=== PATIENT | male | born 1970 | race African-American/Black ===

== ENCOUNTER 2018-08-11 18:02 | Emergency (ER) | payer MEDICARE ==
[~2018-08-11] VITALS: Ht 193 cm; Wt 72.7 kg
[2018-08-11] MEDS ORDERED: FLUP2.5 PO (18:10)
[2018-08-11] MEDS ORDERED: TRIH2TAB3 PO (18:10)
[2018-08-11 19:12] LABS: BASOPHILS % (AUTO) 0.9 % (0.0-2.0); EOSINOPHILS % (AUTO) 3.8 % (1.0-6.0); HEMATOCRIT 41.3 % (41-53); HEMOGLOBIN 13.8 g/dL (13.5-17.5); LYMPHOCYTES # (AUTO) 1.1 K/uL (1.0-4.8); LYMPHOCYTES % (AUTO) 13.6 % (22.0-44.0); MEAN CORPUSCULAR HGB CONC 33.5 G/dL (31.0-37.0); MEAN CORPUSCULAR VOLUME 87 fL (80-100); MONOCYTES # (AUTO) 0.6 K/uL (0.1-1.0); MONOCYTES % (AUTO) 7.8 % (2.0-9.0); NEUTROPHILS # (AUTO) 5.8 K/uL (1.8-7.7); NEUTROPHILS % (AUTO) 73.9 % (40.0-70.0); PLATELET COUNT (AUTO) 368 K/uL (150-450); RED BLOOD CELL COUNT(AUTO) 4.78 MIL/uL (4.50-5.90); RED CELL DISTRIBUTION WIDTH 14.3 % (11.5-14.5)
[2018-08-11 19:29] LABS: ANION GAP 6 mmol/L (8-16); CARBON DIOXIDE 28 mmol/L (22-29); CHLORIDE 101 mmol/L (98-107); POTASSIUM 3.9 mmol/L (3.5-5.1); SODIUM SERUM 135 mmol/L (136-145)
[2018-08-11 19:30] LABS: ALKALINE PHOSPHATASE 75 U/L (46-116); ASPARTATE AMINOTRANSFERASE 26 U/L (15-37); BILIRUBIN,TOTAL 0.5 mg/dL (0.1-1.0); CALCIUM, TOTAL 9.2 mg/dL (8.8-10.5); CREATININE 1.19 mg/dL (0.60-1.30); GLOMERULAR FILTR. RATE CALC > 60 mL/min (>60); GLUCOSE,RANDOM 117 mg/dL (70-110); UREA NITROGEN, BLOOD 20 mg/dL (7-18)
[2018-08-11 19:31] LABS: ALANINE AMINOTRANSFERASE 34 U/L (12-78); ALBUMIN 3.7 g/dL (3.4-5.0)
[2018-08-11 21:17] LABS: AMPHET/METH SCREEN,URINE POSITIVE (NEGATIVE); BARBITURATE SCREEN, URINE NEGATIVE (NEGATIVE); BENZODIAZEPINES SCREEN,URINE NEGATIVE (NEGATIVE); CANNABINOID SCREEN,URINE POSITIVE (NEGATIVE); COCAINE SCREEN,URINE NEGATIVE (NEGATIVE); METHADONE SCREEN, URINE NEGATIVE (NEGATIVE); OPIATE SCREEN,URINE NEGATIVE (NEGATIVE)
[2018-08-11 21:18] LABS: PHENCYCLIDINE SCREEN,URINE NEGATIVE (NEGATIVE)
[2018-08-11 22:30] VITALS: BP 107/74
== END 2018-08-11 22:30 | disposition home or self-care (01) ==
LOC: EMS 18:03
DX: F31.9 Bipolar disorder, unspecified (principal); F17.210 Nicotine dependence, cigarettes, uncomplicated; Z79.899 Other long term (current) drug therapy
CPT/HCPCS: 36415; 80053; 80307; 85025; 99284; G0480

== ENCOUNTER 2018-08-21 18:26 | Emergency (ER) | payer MEDICARE ==
[~2018-08-21 18:26] MED LIST: FLUP2.5 PO; TRIH2TAB3 PO
== END 2018-08-21 19:10 | disposition left against medical advice (07) ==
LOC: EMS 18:26
DX: Z76.0 Encounter for issue of repeat prescription (principal); Z53.21 Procedure and treatment not carried out due to patient leaving prior to being seen by health care provider

== ENCOUNTER 2018-09-22 08:31 | Emergency (ER) | payer MEDICARE | END 2018-09-22 09:30 | disposition left against medical advice (07) | LOC: EMS 08:35 | DX: Z76.0 Encounter for issue of repeat prescription (principal); Z53.21 Procedure and treatment not carried out due to patient leaving prior to being seen by health care provider ==

== ENCOUNTER 2018-09-22 23:27 | Emergency (ER) | payer MEDICARE ==
[~2018-09-22] VITALS: Ht 193 cm; Wt 72.7 kg
[2018-09-22 23:38] VITALS: BP 99/76
== END 2018-09-23 02:00 | disposition left against medical advice (07) ==
LOC: EMS 23:29
DX: M62.838 Other muscle spasm (principal); F31.9 Bipolar disorder, unspecified; F20.9 Schizophrenia, unspecified; F17.210 Nicotine dependence, cigarettes, uncomplicated; F19.90 Other psychoactive substance use, unspecified, uncomplicated; Z53.21 Procedure and treatment not carried out due to patient leaving prior to being seen by health care provider

== ENCOUNTER 2018-09-23 06:28 | Emergency (ER) | payer MEDICARE ==
[~2018-09-23] VITALS: Ht 188 cm; Wt 81.8 kg
[2018-09-23 08:10] VITALS: BP 131/75
[2018-09-23] MEDS ORDERED: TRIHEXYPHENIDYL HCL 2 MG TABLET PO ONE (08:15)
== END 2018-09-23 08:15 | disposition home or self-care (01) ==
LOC: EMS 06:34
DX: M62.838 Other muscle spasm (principal); F31.9 Bipolar disorder, unspecified; F20.9 Schizophrenia, unspecified; F17.210 Nicotine dependence, cigarettes, uncomplicated; F19.90 Other psychoactive substance use, unspecified, uncomplicated; Z76.0 Encounter for issue of repeat prescription

== ENCOUNTER 2018-09-27 10:02 | Inpatient (IN) | payer MEDICARE ==
[~2018-09-27] VITALS: Ht 193 cm; Wt 61.2 kg
[2018-09-27 11:29] LABS: EOSINOPHILS % (AUTO) 5.2 % (1.0-6.0); HEMATOCRIT 41.6 % (41-53); HEMOGLOBIN 13.6 g/dL (13.5-17.5); LYMPHOCYTES # (AUTO) 0.8 K/uL (1.0-4.8); LYMPHOCYTES % (AUTO) 13.6 % (22.0-44.0); MEAN CORPUSCULAR HEMOGLOBIN 28.6 pg (26.0-34.0); MEAN CORPUSCULAR HGB CONC 32.6 G/dL (31.0-37.0); MEAN CORPUSCULAR VOLUME 88 fL (80-100); MONOCYTES # (AUTO) 0.4 K/uL (0.1-1.0); MONOCYTES % (AUTO) 6.3 % (2.0-9.0); NEUTROPHILS # (AUTO) 4.4 K/uL (1.8-7.7); NEUTROPHILS % (AUTO) 73.9 % (40.0-70.0); PLATELET COUNT (AUTO) 387 K/uL (150-450); RED BLOOD CELL COUNT(AUTO) 4.75 MIL/uL (4.50-5.90); RED CELL DISTRIBUTION WIDTH 14.3 % (11.5-14.5)
[2018-09-27 11:38] LABS: ANION GAP 5 mmol/L (8-16); CALCIUM, TOTAL 9.1 mg/dL (8.8-10.5); CARBON DIOXIDE 29 mmol/L (22-29); CHLORIDE 108 mmol/L (98-107); CREATININE 1.07 mg/dL (0.60-1.30); GLOMERULAR FILTR. RATE CALC > 60 mL/min (>60); GLUCOSE,RANDOM 84 mg/dL (70-110); POTASSIUM 4.2 mmol/L (3.5-5.1); SODIUM SERUM 142 mmol/L (136-145); UREA NITROGEN, BLOOD 20 mg/dL (7-18)
[2018-09-27 11:45] LABS: ALANINE AMINOTRANSFERASE 38 U/L (12-78); ALBUMIN 3.8 g/dL (3.4-5.0); ALKALINE PHOSPHATASE 70 U/L (46-116); ASPARTATE AMINOTRANSFERASE 33 U/L (15-37); BILIRUBIN,TOTAL 0.4 mg/dL (0.1-1.0); TOTAL PROTEIN, SERUM 6.8 g/dL (6.4-8.2)
[2018-09-27] MEDS ORDERED: TRIHEXYPHENIDYL HCL 2 MG TABLET PO ONE (11:45)
[2018-09-27] MEDS ORDERED: FluPHENAZine HCL 5 MG TABLET PO ONE (11:45)
[2018-09-27] MEDS ORDERED: FluPHENAZine HCL 5 MG TABLET PO PRN (12:15)
[2018-09-27] MEDS ORDERED: ZOLPIDEM TARTRATE 10 MG TABLET PO PRN (12:15)
[2018-09-27 14:36] VITALS: BP 141/85
[2018-09-27 14:42] VITALS: BP 141/85
[2018-09-27 16:12] VITALS: BP 115/82
[2018-09-27] MEDS: TRIHEXYPHENIDYL HCL 2 MG TABLET PO SCH (16:30)
[2018-09-27] MEDS: LORazepam 2 MG TABLET PO PRN (16:30)
[2018-09-27] MEDS: FluPHENAZine HCL 10 MG TABLET PO SCH (20:13)
[2018-09-28 05:48] VITALS: BP 109/76
[2018-09-28 08:04] VITALS: BP 129/88
[2018-09-28] MEDS: TRIHEXYPHENIDYL HCL 2 MG TABLET PO SCH ×2 (08:23→17:11)
[2018-09-28 08:51] LABS: CHOL/HDL RATIO 2.2 (4.2-7.3); FREE T4 (FREE THYROXINE) 0.99 ng/dL (0.76-1.46); THYROID STIMULATING HORMONE 0.39 uIU/mL (0.36-3.74)
[2018-09-28] MEDS: LORazepam 2 MG TABLET PO PRN (14:11)
[2018-09-28 16:10] VITALS: BP 128/82
[2018-09-28] MEDS ORDERED: BENZOCAINE/MENTHOL LOZENGE MM PRN (20:00)
[2018-09-28] MEDS ORDERED: LOPERAMIDE HCL 2 MG CAPSULE PO PRN (20:00)
[2018-09-28] MEDS ORDERED: IBUPROFEN 600 MG TABLET PO PRN (20:00)
[2018-09-28] MEDS ORDERED: MAGNESIUM HYDROXIDE SUSPENSION 30 ML UDCUP PO PRN (20:00)
[2018-09-28] MEDS ORDERED: PETROLATUM,WHITE 28 GM JELLY TP PRN (20:00)
[2018-09-28] MEDS ORDERED: MAG HYDROX/AL HYDROX/SIMETH ES 30 ML SUSPENSION UDCUP PO PRN (20:00)
[2018-09-28] MEDS ORDERED: CloNIDine HCL 0.1 MG TABLET PO PRN (20:00)
[2018-09-28] MEDS ORDERED: BACITRACIN 28.4 GM OINTMENT TP PRN (20:00)
[2018-09-28] MEDS ORDERED: ONDANSETRON HCL 4 MG TABLET PO PRN (20:00)
[2018-09-28] MEDS ORDERED: ALBUTEROL SULFATE HFA 90 MCG/PUFF 8 GM INHALER IH PRN (20:00)
[2018-09-28] MEDS ORDERED: ACETAMINOPHEN 325 MG TABLET PO PRN (20:00)
[2018-09-28] MEDS: FluPHENAZine HCL 10 MG TABLET PO SCH (20:37)
[2018-09-29 00:01] VITALS: BP 114/73
[2018-09-29 08:06] VITALS: BP 133/87
[2018-09-29] MEDS: DOCUSATE SODIUM 100 MG CAPSULE PO SCH (08:10)
[2018-09-29] MEDS: OMEPRAZOLE 20 MG CAPSULE PO SCH (08:10)
[2018-09-29] MEDS: TRIHEXYPHENIDYL HCL 2 MG TABLET PO SCH ×2 (08:10→16:08)
[2018-09-29 16:07] VITALS: BP 107/62
[2018-09-29] MEDS: FluPHENAZine HCL 10 MG TABLET PO SCH (20:11)
[2018-09-30 06:23] VITALS: BP 105/65
[2018-09-30 08:05] VITALS: BP 109/74
[2018-09-30] MEDS: TRIHEXYPHENIDYL HCL 2 MG TABLET PO SCH ×2 (08:29→16:13)
[2018-09-30] MEDS: OMEPRAZOLE 20 MG CAPSULE PO SCH (08:29)
[2018-09-30] MEDS: DOCUSATE SODIUM 100 MG CAPSULE PO SCH (08:29)
[2018-09-30 16:17] VITALS: BP 115/68
[2018-09-30] MEDS: FluPHENAZine HCL 10 MG TABLET PO SCH (20:30)
[2018-10-01 00:09] VITALS: BP 108/60
[2018-10-01 08:08] VITALS: BP 130/78
[2018-10-01] MEDS: DOCUSATE SODIUM 100 MG CAPSULE PO SCH (08:13)
[2018-10-01] MEDS: OMEPRAZOLE 20 MG CAPSULE PO SCH (08:13)
[2018-10-01] MEDS: TRIHEXYPHENIDYL HCL 2 MG TABLET PO SCH ×2 (08:13→16:10)
[2018-10-01 16:07] VITALS: BP 119/68
[2018-10-01] MEDS: FluPHENAZine HCL 10 MG TABLET PO SCH (20:25)
[2018-10-02 02:42] VITALS: BP 121/70
[2018-10-02 08:29] VITALS: BP 123/74
[2018-10-02] MEDS ORDERED: FLUP10 PO (08:30)
[2018-10-02] MEDS ORDERED: TRIH2TAB3 PO (08:30)
[2018-10-02] MEDS: OMEPRAZOLE 20 MG CAPSULE PO SCH (08:53)
[2018-10-02] MEDS: TRIHEXYPHENIDYL HCL 2 MG TABLET PO SCH (08:53)
[2018-10-02] MEDS: DOCUSATE SODIUM 100 MG CAPSULE PO SCH (08:53)
== END 2018-10-02 11:25 | disposition home or self-care (01) | DRG 885 ==
LOC: EMS 10:02 → B2X 13:02
PROVIDERS: ADMIT Psychiatry & Neurology Psychiatry; ATTEND Psychiatry & Neurology Psychiatry
DX: F20.0 Paranoid schizophrenia (principal); F31.9 Bipolar disorder, unspecified; G47.00 Insomnia, unspecified; K59.00 Constipation, unspecified; Z87.891 Personal history of nicotine dependence
CPT/HCPCS: 84439; 84443; G0480

== ENCOUNTER 2018-10-15 17:48 | Emergency (ER) | payer MEDICARE ==
[~2018-10-15] VITALS: Ht 193 cm; Wt 75.0 kg
[~2018-10-15 17:48] MED LIST changes: +FLUP10 PO; -FLUP2.5 PO
[2018-10-15 17:50] VITALS: BP 111/77
[2018-10-15] MEDS ORDERED: TRIHEXYPHENIDYL HCL 2 MG TABLET PO ONE (20:00)
== END 2018-10-15 20:22 | disposition home or self-care (01) ==
LOC: EMS 17:49
DX: F25.9 Schizoaffective disorder, unspecified (principal); F31.9 Bipolar disorder, unspecified; F15.90 Other stimulant use, unspecified, uncomplicated; F17.210 Nicotine dependence, cigarettes, uncomplicated; Z76.0 Encounter for issue of repeat prescription; Z79.899 Other long term (current) drug therapy

== ENCOUNTER 2018-10-17 13:49 | Emergency (ER) | payer MEDICARE ==
[~2018-10-17] VITALS: Ht 193 cm; Wt 75.0 kg
[2018-10-17 13:56] VITALS: BP 133/97
== END 2018-10-17 17:23 | disposition left against medical advice (07) ==
LOC: EMS 13:50
DX: Z76.0 Encounter for issue of repeat prescription (principal); Z53.21 Procedure and treatment not carried out due to patient leaving prior to being seen by health care provider